=== PATIENT | female | born 1950 | race Caucasian/White ===

== ENCOUNTER 2023-04-25 08:44 | Day surgery (SDC) | payer MEDICARE ==
[2023-04-19 11:53] LABS: BASOPHILS % (AUTO) 0.4 % (0-1); EOSINOPHILS # (AUTO) 0.3 X10'3 (0-0.9); EOSINOPHILS % (AUTO) 2.8 % (0-6); LYMPHOCYTES # (AUTO) 1.5 X10'3 (1.1-4.8); LYMPHOCYTES % (AUTO) 15.7 % (21-51); MEAN CORPUSCULAR HEMOGLOBIN 35.4 PG (27.0-31.0); MEAN CORPUSCULAR HGB CONC 34.1 g/dL (33.0-36.5); MEAN PLATELET VOLUME 6.3 FL (7.4-10.4); MONOCYTES % (AUTO) 10.7 % (2-12); NEUTROPHILS # (AUTO) 6.6 X10'3 (1.8-7.7); NEUTROPHILS % (AUTO) 70.4 % (42-75); PRE OP HEMATOCRIT 44.8 % (35.0-45.0); PRE OP HEMOGLOBIN 15.2 g/dL (12.0-16.0); PRE OP PLATELET COUNT 345 X10'3 (140-440); PRE OP WHITE BLOOD COUNT 9.4 10'3 (4.8-10.8); RED BLOOD COUNT 4.31 X10'6 (4.20-5.60); RED CELL DISTRIBUTION WIDTH 13.4 % (11.5-14.5)
[2023-04-19 12:23] LABS: ALBUMIN/GLOBULIN RATIO 1.1 (1.1-1.5); ALKALINE PHOSPHATASE 86 IU/L (46-116); BLOOD UREA NITROGEN 9 MG/DL (7-18); BUN/CREATININE RATIO 16.7 (10.0-20.0); CALCIUM 9.1 MG/DL (8.5-10.1); CHLORIDE 99 MMOL/L (99-107); CREATININE 0.54 MG/DL (0.40-0.90); PRE OP ALT 40 U/L (30-65); PRE OP ANION GAP 10 (8-16); PRE OP AST 28 U/L (10-37); PRE OP BILIRUB, TOTAL 0.9 MG/DL (0.0-1.0); PRE OP GLUCOSE 90 MG/DL (70-104); PRE OP POTASSIUM 3.9 MMOL/L (3.4-5.1); PRE OP SODIUM 137 MMOL/L (135-145); TOTAL CARBON DIOXIDE 28.5 MMOL/L (24-32); TOTAL PROTEIN 7.6 G/DL (6.4-8.2); eGFR > 90 ML/MIN
[~2023-04-25] VITALS: Ht 172.7 cm; Wt 61.1 kg
[2023-04-25] MEDS: cefazolin 2gm/D5W 100mL 100 ML IV ONE (05:30)
[~2023-04-25 08:44] MED LIST: BUDE0.5A3; FLUT1BLS16 INH; THYR30TA21 PO
[2023-04-25 09:00] VITALS: BP 164/96; PULSE 85; RESP 16; TEMP 98.1; O2SAT 97
[2023-04-25] MEDS: famotidine 20mg tablet PO ONE (09:33)
[2023-04-25] MEDS: ringers solution, lacted 1,000 ML IV SCH (09:34)
[2023-04-25] MEDS ORDERED: ondansetron/PF 4mg/2ml inj IV PRN (11:35)
[2023-04-25] MEDS ORDERED: morphine 4 MG/ML inj SYRINge IV PRN (11:35)
[2023-04-25] MEDS ORDERED: ringers solution, lacted 1,000 ML IV SCH (11:35)
[2023-04-25] MEDS ORDERED: proCHLORperazine 10 MG/2 ml inj IV PRN (11:35)
[2023-04-25] MEDS ORDERED: meperidine/PF 25mg/ml syringe IV PRN ×3 (11:35)
[2023-04-25] MEDS ORDERED: morphine 2 MG/ML inj. syringe IV PRN (11:35)
[2023-04-25] MEDS ORDERED: LIDOcaine 0.5% (5mg/ml) 50ml vial ONE (11:38)
[2023-04-25] MEDS ORDERED: fentaNYL/PF 50MCG/1 ML 2ML syringe ONE (11:57)
[2023-04-25] MEDS ORDERED: midazolam 1 mg/ML 2ml injection ONE (11:58)
[2023-04-25] MEDS: BUPIVAcaine 2.5mg/ml inj 50ml vial (contains preservative) ONE (12:22)
[2023-04-25] MEDS ORDERED: propofol inj 20 ML IV ONE (12:33)
[2023-04-25 12:39] VITALS: BP 145/79; PULSE 77; RESP 15; O2SAT 98
[2023-04-25 12:50] VITALS: BP 150/78; PULSE 77; RESP 20; O2SAT 96
[2023-04-25 13:00] VITALS: BP 158/83; PULSE 73; RESP 16; O2SAT 95
[2023-04-25 13:10] VITALS: BP 161/84; PULSE 73; RESP 15; O2SAT 94
[2023-04-25 13:20] VITALS: BP 148/76; PULSE 70; RESP 14; O2SAT 96
[2023-04-25] MEDS ORDERED: BUPIVAcaine/PF 2.5mg/ml (0.25%) 10ml vial ONE (13:27)
== END 2023-04-25 13:29 | disposition home or self-care (01) ==
LOC: PAS 08:44
PROVIDERS: ATTEND Orthopaedic Surgery Hand Surgery
DX: M72.0 Palmar fascial fibromatosis [Dupuytren] (principal); J44.9 Chronic obstructive pulmonary disease, unspecified; G43.909 Migraine, unspecified, not intractable, without status migrainosus; E03.9 Hypothyroidism, unspecified; M19.90 Unspecified osteoarthritis, unspecified site; M41.9 Scoliosis, unspecified; M46.1 Sacroiliitis, not elsewhere classified; Z88.2 Allergy status to sulfonamides; Z88.8 Allergy status to other drugs, medicaments and biological substances; Z98.890 Other specified postprocedural states; Z79.899 Other long term (current) drug therapy; Z72.89 Other problems related to lifestyle
CPT/HCPCS: 26123; 36415; 80053; 82948; 85025; 93005; A6222; J0690; J2250; J2704; J3010; J3490; J7030; J7120; Z7506; Z7512; A4215; A4618; A6449; A7000